=== PATIENT | male | born 1955 | race African-American/Black ===

== ENCOUNTER 2019-04-11 15:17 | Emergency (ER) | payer MEDICAID ==
[~2019-04-11] VITALS: Ht 200.7 cm; Wt 102.0 kg
[2019-04-11 15:41] VITALS: BP 111/66
== END 2019-04-11 22:01 | disposition left against medical advice (07) ==
LOC: ER 17:10
DX: R68.89 Other general symptoms and signs (principal); Z53.21 Procedure and treatment not carried out due to patient leaving prior to being seen by health care provider